=== PATIENT | female | born 1985 | race Caucasian/White ===

== ENCOUNTER 2016-10-29 19:00 | Emergency (ER) | payer MEDICAID ==
[2016-10-29] MEDS ORDERED: RABIES VACCINE 2.5 UNIT SYRINGE IM ONE ×2 (20:56→21:02)
[2016-10-29] MEDS ORDERED: ONDANSETRON ODT 4 MG TABLET TL STA (20:56)
[2016-10-29] MEDS ORDERED: AMOX/CLAV 875 MG/125 MG TABLET PO STA (20:56)
[2016-10-29] MEDS ORDERED: AMOX/CLAV 875 MG/125 MG TABLET PO ONE (21:01)
[2016-10-29] MEDS ORDERED: ONDANSETRON ODT 4 MG TABLET ONE (21:01)
== END 2016-10-29 21:49 | disposition home or self-care (01) ==
DX: S41.152A Open bite of left upper arm, initial encounter (principal); W55.01XA Bitten by cat, initial encounter; Y93.K3 Activity, grooming and shearing an animal; Y92.89 Other specified places as the place of occurrence of the external cause; Y99.0 Civilian activity done for income or pay; Z23 Encounter for immunization
CPT/HCPCS: 90471; 90675; 99283; A9270; Q0162

== ENCOUNTER 2018-06-20 22:27 | Emergency (ER) | payer SELFPAY ==
[2018-06-20] MEDS ORDERED: LIDOCAINE 2%-EPI 1:100000 20 ML MDV ONE (23:04)
[2018-06-20] MEDS ORDERED: LIDOCAINE 2%-EPI 1:100000 20 ML MDV SUBQ STA (23:05)
[2018-06-20] MEDS ORDERED: BACITRACIN OINT TOP ONE (23:24)
[2018-06-20] MEDS ORDERED: BACITRACIN OINT TOP STA (23:27)
--- NOTE | 2018-06-20 23:49 | ED Physician Documentation ---
PD HPI LOWER EXT INJURY - Stated complaint Stated Complaint: RT ANKLE LAC - Chief complaint Chief Complaint: Laceration - History obtained from History obtained from: Patient - History of Present Illness PD HPI LOW EXT INJURY LOCATION: Right, Ankle Type of injury: Laceration Where injury occurred: Home Timing - onset: Today Timing - details: Abrupt onset Worsened by: Moving, Palpating Similar symptoms before: Has not had sx before Recently seen: Not recently seen - Additional information Additional information: Patient is a 32 year old female with no significant past medical history who is presenting to the emergency department for an leg laceration. patient was taking out the trash when she cut her right ankle. patient states she is up to date on her tetanus. 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 - Present Medications Home Medications: Ambulatory Orders Medication Instructions Recorded Confirmed Alprazolam [Xanax] 1 mg PO PRN PRN 06/20/18 06/20/18 - Allergies Allergies/Adverse Reactions: Allergies Allergy/AdvReac Type Severity Reaction Status Date / Time No Known Drug Allergies Allergy Verified 06/20/18 22:55 - Social History Does the pt smoke?: No Smoking Status: Never smoker Does the pt drink ETOH?: Yes Does the pt have substance abuse?: Yes Substance Use and Type: Marijuana - Immunizations Immunizations are current?: Yes Immunizations: TDAP current <10years - POLST Patient has POLST: No PD ED PE NORMAL - Vitals Vital signs reviewed: Yes - General General: Alert and oriented X 3 - HEENT HEENT: Atraumatic - Cardiac Cardiac: RRR - Respiratory Respiratory: No respiratory distress - Neuro Eye Opening: Spontaneous PD ED PE EXPANDED - Extremities Extremities: Right ankle (4cm right ankle laceration) Results - Vitals Vitals: Vital Signs - 24 hr 06/20/18 22:51 Temperature 37 C Heart Rate 90 Respiratory 18 Rate Blood Pressure 124/75 O2 Saturation 100 Oxygen O2 Source Room air Procedures - Laceration (location) right ankle Length in cm: 4 Wound type: Linear, Flap Anesthesia: Lidocaine 2% with epi Wound Preparation: Irrigated copiously NS Skin layer closure: Size #-0 - enter number (4), Sutures - enter # (5) Other: Patient tolerated well, No complications, Tetanus UTD Complexity: Simple PD MEDICAL DECISION MAKING - ED course Complexity details: reviewed old records, reviewed results, re-evaluated patient , considered differential, d/w patient ED course: Patient was seen and examined at bedside. Patient's laceration was repaired. Patient required no further work up and was stable for discharge with outpatient follow up. - Sepsis Event Vital Signs: Vital Signs - 24 hr 06/20/18 22:51 Temperature 37 C Heart Rate 90 Respiratory 18 Rate Blood Pressure 124/75 O2 Saturation 100 Oxygen O2 Source Room air Departure - Departure Disposition: Home, Self Care Clinical Impression: Laceration Condition: Good Instructions: ED Laceration Sure Close Follow-Up: Hieu Costa MD [Primary Care Provider] - As Needed Comments: You should keep your wound clean and dry. The sutures that were placed are dissolvable. You can take motrin or tylenol as needed for pain. You should ice the area and keep it elevated. You should monitor for signs of infection. You may return to the emergency department at any time for new, worsening or uncontrollable symptoms.
[2018-06-20 23:55] VITALS: BP 121/58
== END 2018-06-20 23:55 | disposition home or self-care (01) ==
LOC: ED 22:27
DX: S91.012A Laceration without foreign body, left ankle, initial encounter (principal); W25.XXXA Contact with sharp glass, initial encounter; Y93.89 Activity, other specified; Y92.009 Unspecified place in unspecified non-institutional (private) residence as the place of occurrence of the external cause
CPT/HCPCS: 12002; 99283; A9270

== ENCOUNTER → 2018-07-24 | Outpatient (CLI) | payer SELFPAY | LOC: LAB.R 08:00 | PROVIDERS: ATTEND Obstetrics & Gynecology | DX: N89.8 Other specified noninflammatory disorders of vagina (principal) | CPT/HCPCS: 87480; 87510; 87660 ==

== ENCOUNTER 2021-02-20 13:26 | Outpatient (CLI) | payer OTHER ==
[2021-02-20 19:58] LABS: BASOPHILS % (AUTO) 0.7 %; EOSINOPHILS # (AUTO) 0.4 10^3/uL (0.0-0.7); EOSINOPHILS % (AUTO) 6.9 %; HCT - HEMATOCRIT 37.2 % (37.0-47.0); HGB - HEMOGLOBIN 11.5 g/dL (12.0-16.0); LYMPHOCYTES # (AUTO) 1.8 10^3/uL (1.5-3.5); MEAN CORPUSCULAR HEMOGLOBIN 29.8 pg (27.0-31.0); MEAN CORPUSCULAR HGB CONC 30.9 g/dL (32.0-36.0); MEAN CORPUSCULAR VOLUME 96.4 fL (81.0-99.0); MEAN PLATELET VOLUME 9.7 fL (7.9-10.8); MONOCYTES # (AUTO) 0.6 10^3/uL (0.0-1.0); MONOCYTES % (AUTO) 9.8 %; NEUTROPHILS # (AUTO) 2.9 10^3/uL (1.5-6.6); NEUTROPHILS % (AUTO) 50.4 %; PLT - PLATELET COUNT 332 10^3/uL (130-450); RED BLOOD COUNT 3.86 10^6/uL (4.20-5.40); RED CELL DISTRIBUTION WIDTH 14.3 % (12.0-15.0); WHITE BLOOD COUNT 5.7 x10^3/uL (4.8-10.8)
[2021-02-20 20:12] LABS: ALBUMIN 4.6 g/dL (3.2-5.5); ALBUMIN/GLOBULIN RATIO 1.4 (1.0-2.2); CALCIUM 9.9 mg/dL (8.5-10.3); CREATININE 0.9 mg/dL (0.4-1.0); POTASSIUM 3.9 mmol/L (3.5-5.0)
[2021-02-20 20:27] LABS: THYROID STIMULATING HORMONE 1.57 uIU/mL (0.34-5.60)
== END 2021-02-20 13:27 | disposition home or self-care (01) ==
LOC: LAB.S 13:26
PROVIDERS: ATTEND Physician Assistant
DX: N93.9 Abnormal uterine and vaginal bleeding, unspecified (principal); R53.83 Other fatigue; F10.10 Alcohol abuse, uncomplicated; G47.00 Insomnia, unspecified; F32.81 Premenstrual dysphoric disorder; F41.9 Anxiety disorder, unspecified; F32.9 Major depressive disorder, single episode, unspecified
CPT/HCPCS: 36415; 80053; 82306; 84443; 85025

== ENCOUNTER 2021-10-28 08:00 | Outpatient (CLI) | payer OTHER ==
--- NOTE | 2021-10-29 12:51 | XRAY Report ---
PROCEDURE: Elbow 2 View RT INDICATIONS: RIGHT ELBOW PAIN TECHNIQUE: 2 views of the elbow were acquired. COMPARISON: None FINDINGS: Bones: No fractures or dislocations. No suspicious bony lesions. Soft tissues: Mild elbow joint effusion. No suspicious soft tissue calcifications. IMPRESSION: Mild effusion. No visualized acute fracture or dislocation. However, occult injury cannot be excluded . Recommend short interval imaging follow-up in 7-10 days as clinically indicated for additional eval uation. Reviewed by: Idalia Yao MD on 10/29/2021 12:50 PM PST Approved by: Idalia Yao MD on 10/29/2021 12:50 PM [facility] Station ID: [id number]
== END 2021-10-28 23:59 | disposition home or self-care (01) ==
LOC: DI.S 08:00
PROVIDERS: ATTEND Physician Assistant
DX: M25.521 Pain in right elbow (principal); M25.421 Effusion, right elbow

== ENCOUNTER 2023-06-21 18:12 | Outpatient (CLI) | payer OTHER ==
--- NOTE | 2023-06-21 19:31 | XRAY Report ---
PROCEDURE: Finger(s) RT INDICATIONS: SPRAIN OF RIGHT MIDDLE FINGER TECHNIQUE: AP hand, 2 views of the third finger(s) acquired. COMPARISON: None. FINDINGS: Bones: Oblique fracture through the distal third phalangeal base extends to the distal phalangeal mikaela int. Normal bone mineralization. Soft tissues: No suspicious soft tissue calcifications or masses. IMPRESSION: Nondisplaced intra-articular fracture, base of the third distal phalanx Reviewed by: Byron Stiles MD on 06/21/2023 6:30 PM [facility] Approved by: Byron Stiles MD on 06/21/2023 6:30 PM [facility] Station ID: [id number]
== END 2023-06-21 23:59 | disposition home or self-care (01) ==
LOC: DI.S 18:12
PROVIDERS: ATTEND Physician Assistant Medical
DX: S62.622A Displaced fracture of middle phalanx of right middle finger, initial encounter for closed fracture (principal)

== ENCOUNTER 2023-07-29 16:14 | Outpatient (CLI) | payer OTHER ==
--- NOTE | 2023-07-29 17:57 | XRAY Report ---
PROCEDURE: Chest 2 View X-Ray INDICATIONS: BRONCHOSPASM/SHORTNESS OF BREATH TECHNIQUE: 2 views of the chest were obtained. COMPARISON: None. FINDINGS: Surgical changes and devices: None. Lungs and pleura: No pleural effusions or pneumothorax. Lungs are clear. Mediastinum: Mediastinal contours appear normal. Heart size is normal. Bones and chest wall: No suspicious bony lesions. Overlying soft tissues appear unremarkable. IMPRESSION: Normal two-view chest x-ray Reviewed by: Byron Stiles MD on 07/29/2023 4:56 PM [facility] Approved by: Byron Stiles MD on 07/29/2023 4:56 PM [facility] Station ID: [id number]
== END 2023-07-29 23:59 | disposition home or self-care (01) ==
LOC: DI.S 16:14
PROVIDERS: ATTEND Physician Assistant Medical
DX: R06.02 Shortness of breath (principal); J98.01 Acute bronchospasm

== ENCOUNTER 2023-12-05 12:58 | Outpatient (CLI) | payer OTHER ==
[2023-12-05 13:16] LABS: BASOPHILS % (AUTO) 0.9 %; EOSINOPHILS # (AUTO) 0.4 10^3/uL (0.0-0.7); EOSINOPHILS % (AUTO) 9.4 %; HCT - HEMATOCRIT 38.1 % (37.0-47.0); HGB - HEMOGLOBIN 12.3 g/dL (12.0-16.0); LYMPHOCYTES # (AUTO) 1.8 10^3/uL (1.5-3.5); LYMPHOCYTES % (AUTO) 40.3 %; MEAN CORPUSCULAR HEMOGLOBIN 30.9 pg (27.0-31.0); MEAN CORPUSCULAR HGB CONC 32.3 g/dL (32.0-36.0); MEAN CORPUSCULAR VOLUME 95.7 fL (81.0-99.0); MEAN PLATELET VOLUME 9.6 fL (7.9-10.8); MONOCYTES # (AUTO) 0.3 10^3/uL (0.0-1.0); MONOCYTES % (AUTO) 6.9 %; NEUTROPHILS # (AUTO) 1.9 10^3/uL (1.5-6.6); NEUTROPHILS % (AUTO) 42.5 %; PLT - PLATELET COUNT 251 10^3/uL (130-450); RED BLOOD COUNT 3.98 10^6/uL (4.20-5.40); RED CELL DISTRIBUTION WIDTH 12.5 % (12.0-15.0); WHITE BLOOD COUNT 4.4 x10^3/uL (4.8-10.8)
[2023-12-05 13:24] LABS: ALBUMIN 4.3 g/dL (3.2-5.5); ALBUMIN/GLOBULIN RATIO 1.9 (1.0-2.2); ALKALINE PHOSPHATASE 42 IU/L (42-121); ALT ALANINE AMINOTRANSFERASE 10 IU/L (10-60); AST ASPARTATE AMINOTRANSFERASE 11 IU/L (10-42); BILIRUBIN,DIRECT 0.13 mg/dL (0.03-0.18); BILIRUBIN,TOTAL 0.8 mg/dL (0.2-1.0); BUN - BLOOD UREA NITROGEN 12 mg/dL (6-20); CALCIUM 9.3 mg/dL (8.5-10.3); CARBON DIOXIDE - CO2 30 mmol/L (21-32); CHLORIDE 103 mmol/L (101-111); CHOL/HDL RATIO 2.8 (<4.4); CHOLESTEROL 165 mg/dL; CREATININE 0.8 mg/dL (0.6-1.3); GFR - MDRD 79 (>89); GLUCOSE 114 mg/dL (74-104); HDL CHOLESTEROL 59 mg/dL; LDL CHOLESTEROL,CALCULATED 84 mg/dL; LDL/HDL RATIO 1.4 (<4.4); POTASSIUM 3.7 mmol/L (3.5-4.5); SODIUM 139 mmol/L (135-145); TOTAL PROTEIN 6.6 g/dL (6.4-8.9); TRIGLYCERIDES 111 mg/dL (48-352); VLDL CHOLESTEROL 22 mg/dL
[2023-12-05 13:39] LABS: THYROID STIMULATING HORMONE 1.58 uIU/mL (0.34-5.60)
[2023-12-05 13:54] LABS: FERRITIN 6.5 ng/mL (11.0-306.8)
[2023-12-05 14:24] LABS: ESTIMATED AVERAGE GLUCOSE 100 mg/dL (70-100); HEMOGLOBIN A1c% 5.1 % (4.27-6.07)
== END 2023-12-05 12:59 | disposition home or self-care (01) ==
LOC: LAB 12:58
PROVIDERS: ATTEND Nurse Practitioner
DX: F33.2 Major depressive disorder, recurrent severe without psychotic features (principal); F10.10 Alcohol abuse, uncomplicated; E55.9 Vitamin D deficiency, unspecified
CPT/HCPCS: 36415; 80053; 80061; 80076; 82306; 82607; 82728; 83036; 83721; 84443; 85025

== ENCOUNTER 2024-03-26 14:57 | Outpatient (CLI) | payer OTHER | END 2024-03-26 14:58 | disposition home or self-care (01) | LOC: DI.S 14:57 | PROVIDERS: ATTEND Internal Medicine | DX: Z53.9 Procedure and treatment not carried out, unspecified reason (principal) ==